=== PATIENT | male | born 1965 | race Caucasian/White ===

== ENCOUNTER 2021-06-17 18:05 | Inpatient (IN) | payer OTHER ==
[2021-06-17] MEDS ORDERED: LOPERAMIDE HCL 2 MG CAPSULE PO PRN (22:50)
[2021-06-17] MEDS ORDERED: MAGNESIUM HYDROX 2400MG/30ML ORAL SUSPENSION 30 ML CUP PO PRN (22:50)
[2021-06-17] MEDS ORDERED: ACETAMINOPHEN 325 MG TABLET (FP) PO PRN (22:50)
[2021-06-17] MEDS ORDERED: IBUPROFEN 400 MG TABLET (FP) PO PRN (22:50)
[2021-06-17] MEDS ORDERED: MAG HYDROX/AL HYDROX/SIMETH 30 ML UNIT-DOSE CUP PO PRN (22:50)
[2021-06-17] MEDS ORDERED: guaiFENesin 200 MG/10 ML 10 ML UNIT-DOSE CUPS PO PRN (22:50)
[2021-06-17] MEDS ORDERED: MAGNESIUM CITRATE 300 ML BOTTLE PO PRN (22:50)
[2021-06-17] MEDS ORDERED: P-EPHED 60MG/TRIPROLIDI 2.5MG TABLET PO PRN (22:50)
[2021-06-17 23:49] VITALS: BMI 28.5
[2021-06-18] MEDS ORDERED: TUBERCULIN PPD 5 TU/0.1ML VIAL ID ONE ×2 (04:11→08:03)
[2021-06-18] MEDS: hydrOXYzine PAMOATE 25 MG CAPSULE (FP) PO SCH ×5 (08:07→21:40)
[2021-06-18] MEDS ORDERED: APIXABAN 5 MG TABLET PO SCH (10:00)
[2021-06-18] MEDS: PRENATAL VITAMINS W/ FOLIC ACID TABLET (FP) PO SCH (10:38)
[2021-06-18] MEDS: NICOTINE 7 MG/24 HOURS TOPICAL PATCH TD SCH (10:39)
[2021-06-18] MEDS: MELATONIN 5 MG TABLETS PO SCH ×2 (16:29→21:40)
[2021-06-18] MEDS: metFORMIN HCL 500 MG TABLET (FP) PO SCH (17:00)
[2021-06-18] MEDS: FAMOTIDINE 20 MG TABLET PO SCH (17:00)
[2021-06-18] MEDS: NICOTINE 10 MG CARTRIDGE (INHALER) IH PRN (17:03)
[2021-06-18] MEDS: APIXABAN 5 MG TABLET PO SCH (21:40)
[2021-06-18] MEDS: THIAMINE HCL 100 MG TABLET (FP) PO SCH (21:40)
[2021-06-19] MEDS: metFORMIN HCL 500 MG TABLET (FP) PO SCH (06:43)
[2021-06-19] MEDS: hydrOXYzine PAMOATE 25 MG CAPSULE (FP) PO SCH ×5 (06:43→21:58)
[2021-06-19] MEDS ORDERED: PT OWN MED DRAWER 7, Y5N ONE (09:05)
[2021-06-19] MEDS: APIXABAN 5 MG TABLET PO SCH ×2 (10:36→21:57)
[2021-06-19] MEDS: PRENATAL VITAMINS W/ FOLIC ACID TABLET (FP) PO SCH (10:36)
[2021-06-19] MEDS: NICOTINE 7 MG/24 HOURS TOPICAL PATCH TD SCH (10:37)
[2021-06-19] MEDS: FAMOTIDINE 20 MG TABLET PO SCH (10:38)
[2021-06-19] MEDS: NICOTINE 10 MG CARTRIDGE (INHALER) IH PRN ×2 (10:38→19:23)
[2021-06-19] MEDS: MAGNESIUM OXIDE 400 MG TABLET (FP) PO SCH (10:59)
[2021-06-19] MEDS: MELATONIN 5 MG TABLETS PO SCH (21:58)
[2021-06-19] MEDS: THIAMINE HCL 100 MG TABLET (FP) PO SCH (21:58)
[2021-06-20] MEDS: metFORMIN HCL 500 MG TABLET (FP) PO SCH (06:22)
[2021-06-20] MEDS: hydrOXYzine PAMOATE 25 MG CAPSULE (FP) PO SCH ×2 (06:22→11:31)
[2021-06-20] MEDS: NICOTINE 10 MG CARTRIDGE (INHALER) IH PRN ×3 (06:22→21:29)
[2021-06-20] MEDS: APIXABAN 5 MG TABLET PO SCH ×2 (10:52→21:27)
[2021-06-20] MEDS: PRENATAL VITAMINS W/ FOLIC ACID TABLET (FP) PO SCH (10:52)
[2021-06-20] MEDS: FAMOTIDINE 20 MG TABLET PO SCH (10:52)
[2021-06-20] MEDS: NICOTINE 7 MG/24 HOURS TOPICAL PATCH TD SCH (10:53)
[2021-06-20] MEDS: MAGNESIUM OXIDE 400 MG TABLET (FP) PO SCH (13:52)
[2021-06-20] MEDS: POLYETHYLENE GLYCOL (HEALTHYLAX) 3350 17 GM PACKET PO SCH (14:29)
[2021-06-20 17:12] LABS: HEMATOCRIT 34.2 % (35.4-49); HEMOGLOBIN 11.2 GM/dL (11.7-16.9); MCH 31.6 pg (25.7-33.7); MCHC 32.7 g/dl (32.0-35.9); MEAN CELL VOLUME 96.7 fl (80-96); MEAN PLT VOLUME 7.4 fl (7.5-11.1); PLATELET COUNT 318 10^3/uL (134-434); RBC 3.53 M/mm3 (4.00-5.60); RDW 18.5 % (11.9-15.9); WHITE BLOOD COUNT 7.8 K/mm3 (4.0-10.0)
[2021-06-20 17:23] LABS: ALBUMIN 3.2 g/dl (3.4-5.0); BLOOD UREA NITROGEN 14.6 mg/dL (7-18); CALCIUM 8.2 mg/dL (8.5-10.1)
[2021-06-20 17:28] LABS: TOT PROT 6.9 g/dl (6.4-8.2)
[2021-06-20] MEDS ORDERED: PT OWN MED DRAWER 7, Y5N ONE (20:29)
[2021-06-20] MEDS: MELATONIN 5 MG TABLETS PO SCH (21:27)
[2021-06-20] MEDS: traZODone HCL 100 MG TABLET (FP) PO SCH (21:27)
[2021-06-20] MEDS: THIAMINE HCL 100 MG TABLET (FP) PO SCH (21:27)
[2021-06-21] MEDS: metFORMIN HCL 500 MG TABLET (FP) PO SCH (06:24)
[2021-06-21] MEDS: NICOTINE 10 MG CARTRIDGE (INHALER) IH PRN ×3 (06:25→21:25)
[2021-06-21] MEDS: PRENATAL VITAMINS W/ FOLIC ACID TABLET (FP) PO SCH (09:48)
[2021-06-21] MEDS: APIXABAN 5 MG TABLET PO SCH ×2 (09:48→21:24)
[2021-06-21] MEDS: POLYETHYLENE GLYCOL (HEALTHYLAX) 3350 17 GM PACKET PO SCH (09:48)
[2021-06-21] MEDS: NICOTINE 7 MG/24 HOURS TOPICAL PATCH TD SCH (09:48)
[2021-06-21] MEDS: MAGNESIUM OXIDE 400 MG TABLET (FP) PO SCH (09:48)
[2021-06-21] MEDS: FAMOTIDINE 20 MG TABLET PO SCH (09:48)
[2021-06-21 17:27] LABS: PH,URINE 6.5 (5.0-8.0); URINE APPEARANCE CLEAR; URINE BILIRUBIN NEGATIVE (NEGATIVE); URINE COLOR YELLOW; URINE GLUCOSE (UA) NEGATIVE (NEGATIVE); URINE KETONE NEGATIVE (NEGATIVE); URINE LEUK ESTERASE NEGATIVE (NEGATIVE); URINE NITRITE NEGATIVE (NEGATIVE); URINE PROTEIN NEGATIVE (NEGATIVE)
[2021-06-21] MEDS ORDERED: PT OWN MED DRAWER 7, Y5N ONE (19:18)
[2021-06-21] MEDS: traZODone HCL 100 MG TABLET (FP) PO SCH (21:24)
[2021-06-21] MEDS: THIAMINE HCL 100 MG TABLET (FP) PO SCH (21:24)
[2021-06-21] MEDS: MELATONIN 5 MG TABLETS PO SCH (21:24)
[2021-06-22] MEDS: metFORMIN HCL 500 MG TABLET (FP) PO SCH (06:20)
[2021-06-22] MEDS: PRENATAL VITAMINS W/ FOLIC ACID TABLET (FP) PO SCH (09:56)
[2021-06-22] MEDS: NICOTINE 7 MG/24 HOURS TOPICAL PATCH TD SCH (09:57)
[2021-06-22] MEDS: hydrOXYzine PAMOATE 25 MG CAPSULE (FP) PO PRN (09:57)
[2021-06-22] MEDS: POLYETHYLENE GLYCOL (HEALTHYLAX) 3350 17 GM PACKET PO SCH ×3 (09:57→16:12)
[2021-06-22] MEDS: MAGNESIUM OXIDE 400 MG TABLET (FP) PO SCH (09:57)
[2021-06-22] MEDS: APIXABAN 5 MG TABLET PO SCH ×2 (09:57→21:25)
[2021-06-22] MEDS: FAMOTIDINE 20 MG TABLET PO SCH (09:57)
[2021-06-22] MEDS: NICOTINE 10 MG CARTRIDGE (INHALER) IH PRN ×3 (09:58→21:26)
[2021-06-22] MEDS ORDERED: PT OWN MED DRAWER 7, Y5N ONE (20:19)
[2021-06-22] MEDS: traZODone HCL 100 MG TABLET (FP) PO SCH (21:25)
[2021-06-22] MEDS: MELATONIN 5 MG TABLETS PO SCH (21:26)
[2021-06-22] MEDS: THIAMINE HCL 100 MG TABLET (FP) PO SCH (21:26)
[2021-06-23] MEDS: NICOTINE 10 MG CARTRIDGE (INHALER) IH PRN ×5 (06:19→22:09)
[2021-06-23] MEDS: metFORMIN HCL 500 MG TABLET (FP) PO SCH (06:19)
[2021-06-23] MEDS: APIXABAN 5 MG TABLET PO SCH ×2 (10:05→21:33)
[2021-06-23] MEDS: hydrOXYzine PAMOATE 25 MG CAPSULE (FP) PO PRN (10:05)
[2021-06-23] MEDS: MAGNESIUM OXIDE 400 MG TABLET (FP) PO SCH (10:05)
[2021-06-23] MEDS: PRENATAL VITAMINS W/ FOLIC ACID TABLET (FP) PO SCH (10:05)
[2021-06-23] MEDS: POLYETHYLENE GLYCOL (HEALTHYLAX) 3350 17 GM PACKET PO SCH (10:06)
[2021-06-23] MEDS: FAMOTIDINE 20 MG TABLET PO SCH (10:06)
[2021-06-23] MEDS: NICOTINE 7 MG/24 HOURS TOPICAL PATCH TD SCH (10:06)
[2021-06-23] MEDS ORDERED: PT OWN MED DRAWER 7, Y5N ONE (20:16)
[2021-06-23] MEDS: traZODone HCL 100 MG TABLET (FP) PO SCH (21:33)
[2021-06-23] MEDS: MELATONIN 5 MG TABLETS PO SCH (21:33)
[2021-06-23] MEDS: THIAMINE HCL 100 MG TABLET (FP) PO SCH (21:33)
[2021-06-24] MEDS: NICOTINE 10 MG CARTRIDGE (INHALER) IH PRN ×5 (04:55→23:46)
[2021-06-24] MEDS: metFORMIN HCL 500 MG TABLET (FP) PO SCH (06:29)
[2021-06-24] MEDS ORDERED: PT OWN MED DRAWER 7, Y5N ONE ×2 (08:35→19:54)
[2021-06-24] MEDS: PRENATAL VITAMINS W/ FOLIC ACID TABLET (FP) PO SCH (10:20)
[2021-06-24] MEDS: APIXABAN 5 MG TABLET PO SCH ×2 (10:20→21:38)
[2021-06-24] MEDS: POLYETHYLENE GLYCOL (HEALTHYLAX) 3350 17 GM PACKET PO SCH (10:20)
[2021-06-24] MEDS: MAGNESIUM OXIDE 400 MG TABLET (FP) PO SCH (10:20)
[2021-06-24] MEDS: FAMOTIDINE 20 MG TABLET PO SCH (10:20)
[2021-06-24] MEDS: NICOTINE 7 MG/24 HOURS TOPICAL PATCH TD SCH (10:21)
[2021-06-24] MEDS: THIAMINE HCL 100 MG TABLET (FP) PO SCH (21:38)
[2021-06-24] MEDS: traZODone HCL 100 MG TABLET (FP) PO SCH (21:38)
[2021-06-24] MEDS: MELATONIN 5 MG TABLETS PO SCH (21:38)
[2021-06-25] MEDS: metFORMIN HCL 500 MG TABLET (FP) PO SCH (06:24)
[2021-06-25] MEDS: NICOTINE 10 MG CARTRIDGE (INHALER) IH PRN ×4 (06:25→19:56)
[2021-06-25] MEDS: PRENATAL VITAMINS W/ FOLIC ACID TABLET (FP) PO SCH (10:12)
[2021-06-25] MEDS: MAGNESIUM OXIDE 400 MG TABLET (FP) PO SCH (10:13)
[2021-06-25] MEDS: FAMOTIDINE 20 MG TABLET PO SCH (10:13)
[2021-06-25] MEDS: APIXABAN 5 MG TABLET PO SCH ×2 (10:13→21:33)
[2021-06-25] MEDS: POLYETHYLENE GLYCOL (HEALTHYLAX) 3350 17 GM PACKET PO SCH (10:14)
[2021-06-25] MEDS: NICOTINE 7 MG/24 HOURS TOPICAL PATCH TD SCH (10:14)
[2021-06-25] MEDS: traZODone HCL 100 MG TABLET (FP) PO SCH (21:32)
[2021-06-25] MEDS: THIAMINE HCL 100 MG TABLET (FP) PO SCH (21:32)
[2021-06-25] MEDS: MELATONIN 5 MG TABLETS PO SCH (21:32)
[2021-06-26] MEDS: metFORMIN HCL 500 MG TABLET (FP) PO SCH (06:08)
[2021-06-26] MEDS: hydrOXYzine PAMOATE 25 MG CAPSULE (FP) PO PRN (06:09)
[2021-06-26] MEDS: NICOTINE 10 MG CARTRIDGE (INHALER) IH PRN ×5 (06:10→22:23)
[2021-06-26] MEDS: MAGNESIUM OXIDE 400 MG TABLET (FP) PO SCH (09:51)
[2021-06-26] MEDS: FAMOTIDINE 20 MG TABLET PO SCH (09:51)
[2021-06-26] MEDS: APIXABAN 5 MG TABLET PO SCH ×2 (09:51→22:08)
[2021-06-26] MEDS: NICOTINE 7 MG/24 HOURS TOPICAL PATCH TD SCH (09:52)
[2021-06-26] MEDS: PRENATAL VITAMINS W/ FOLIC ACID TABLET (FP) PO SCH (09:52)
[2021-06-26] MEDS: POLYETHYLENE GLYCOL (HEALTHYLAX) 3350 17 GM PACKET PO SCH (09:53)
[2021-06-26] MEDS ORDERED: PT OWN MED DRAWER 7, Y5N ONE (19:35)
[2021-06-26] MEDS: traZODone HCL 100 MG TABLET (FP) PO SCH (22:08)
[2021-06-26] MEDS: MELATONIN 5 MG TABLETS PO SCH (22:08)
[2021-06-26] MEDS: THIAMINE HCL 100 MG TABLET (FP) PO SCH (22:08)
[2021-06-27] MEDS: metFORMIN HCL 500 MG TABLET (FP) PO SCH (06:34)
[2021-06-27] MEDS: NICOTINE 10 MG CARTRIDGE (INHALER) IH PRN ×5 (06:34→23:12)
[2021-06-27] MEDS: FAMOTIDINE 20 MG TABLET PO SCH (09:58)
[2021-06-27] MEDS: APIXABAN 5 MG TABLET PO SCH ×2 (09:58→21:23)
[2021-06-27] MEDS: hydrOXYzine PAMOATE 25 MG CAPSULE (FP) PO PRN ×2 (09:59→21:24)
[2021-06-27] MEDS: POLYETHYLENE GLYCOL (HEALTHYLAX) 3350 17 GM PACKET PO SCH (09:59)
[2021-06-27] MEDS: MAGNESIUM OXIDE 400 MG TABLET (FP) PO SCH (09:59)
[2021-06-27] MEDS: PRENATAL VITAMINS W/ FOLIC ACID TABLET (FP) PO SCH (09:59)
[2021-06-27] MEDS: NICOTINE 7 MG/24 HOURS TOPICAL PATCH TD SCH (09:59)
[2021-06-27] MEDS ORDERED: PT OWN MED DRAWER 7, Y5N ONE (20:37)
[2021-06-27] MEDS: THIAMINE HCL 100 MG TABLET (FP) PO SCH (21:23)
[2021-06-27] MEDS: MELATONIN 5 MG TABLETS PO SCH (21:23)
[2021-06-27] MEDS: traZODone HCL 100 MG TABLET (FP) PO SCH (21:23)
[2021-06-28] MEDS: metFORMIN HCL 500 MG TABLET (FP) PO SCH (06:13)
[2021-06-28] MEDS: hydrOXYzine PAMOATE 25 MG CAPSULE (FP) PO PRN ×2 (06:13→21:37)
[2021-06-28] MEDS ORDERED: PT OWN MED DRAWER 7, Y5N ONE (08:36)
[2021-06-28] MEDS: APIXABAN 5 MG TABLET PO SCH ×2 (10:12→21:37)
[2021-06-28] MEDS: NICOTINE 7 MG/24 HOURS TOPICAL PATCH TD SCH (10:12)
[2021-06-28] MEDS: FAMOTIDINE 20 MG TABLET PO SCH (10:12)
[2021-06-28] MEDS: MAGNESIUM OXIDE 400 MG TABLET (FP) PO SCH (10:12)
[2021-06-28] MEDS: PRENATAL VITAMINS W/ FOLIC ACID TABLET (FP) PO SCH (10:12)
[2021-06-28] MEDS: POLYETHYLENE GLYCOL (HEALTHYLAX) 3350 17 GM PACKET PO SCH (10:12)
[2021-06-28] MEDS: NICOTINE 10 MG CARTRIDGE (INHALER) IH PRN ×4 (10:13→22:03)
[2021-06-28] MEDS ORDERED: METHOCARBAMOL 500 MG TABLET PO PRN (16:21)
[2021-06-28] MEDS: traZODone HCL 100 MG TABLET (FP) PO SCH (21:36)
[2021-06-28] MEDS: MELATONIN 5 MG TABLETS PO SCH (21:37)
[2021-06-28] MEDS: THIAMINE HCL 100 MG TABLET (FP) PO SCH (21:37)
[2021-06-29] MEDS: metFORMIN HCL 500 MG TABLET (FP) PO SCH (07:03)
[2021-06-29] MEDS: NICOTINE 10 MG CARTRIDGE (INHALER) IH PRN ×4 (07:05→19:02)
[2021-06-29] MEDS: PRENATAL VITAMINS W/ FOLIC ACID TABLET (FP) PO SCH (10:13)
[2021-06-29] MEDS: hydrOXYzine PAMOATE 25 MG CAPSULE (FP) PO PRN ×2 (10:13→21:38)
[2021-06-29] MEDS: FAMOTIDINE 20 MG TABLET PO SCH (10:13)
[2021-06-29] MEDS: POLYETHYLENE GLYCOL (HEALTHYLAX) 3350 17 GM PACKET PO SCH (10:14)
[2021-06-29] MEDS: APIXABAN 5 MG TABLET PO SCH ×2 (10:14→21:38)
[2021-06-29] MEDS: MAGNESIUM OXIDE 400 MG TABLET (FP) PO SCH (10:14)
[2021-06-29] MEDS: NICOTINE 7 MG/24 HOURS TOPICAL PATCH TD SCH (10:16)
[2021-06-29] MEDS: traZODone HCL 100 MG TABLET (FP) PO SCH (21:38)
[2021-06-29] MEDS: THIAMINE HCL 100 MG TABLET (FP) PO SCH (21:38)
[2021-06-29] MEDS: MELATONIN 5 MG TABLETS PO SCH (21:38)
[2021-06-30] MEDS: metFORMIN HCL 500 MG TABLET (FP) PO SCH (06:05)
[2021-06-30] MEDS: NICOTINE 10 MG CARTRIDGE (INHALER) IH PRN ×5 (06:06→22:10)
[2021-06-30] MEDS: FAMOTIDINE 20 MG TABLET PO SCH (09:59)
[2021-06-30] MEDS: APIXABAN 5 MG TABLET PO SCH ×2 (10:00→22:17)
[2021-06-30] MEDS: POLYETHYLENE GLYCOL (HEALTHYLAX) 3350 17 GM PACKET PO SCH (10:00)
[2021-06-30] MEDS: MAGNESIUM OXIDE 400 MG TABLET (FP) PO SCH (10:00)
[2021-06-30] MEDS: hydrOXYzine PAMOATE 25 MG CAPSULE (FP) PO PRN ×2 (10:00→21:19)
[2021-06-30] MEDS: NICOTINE 7 MG/24 HOURS TOPICAL PATCH TD SCH (10:01)
[2021-06-30] MEDS: PRENATAL VITAMINS W/ FOLIC ACID TABLET (FP) PO SCH (10:01)
[2021-06-30] MEDS ORDERED: PT OWN MED DRAWER 7, Y5N ONE (20:34)
[2021-06-30] MEDS: MELATONIN 5 MG TABLETS PO SCH (21:19)
[2021-06-30] MEDS: THIAMINE HCL 100 MG TABLET (FP) PO SCH (21:19)
[2021-06-30] MEDS: traZODone HCL 100 MG TABLET (FP) PO SCH (21:20)
[2021-07-01] MEDS: hydrOXYzine PAMOATE 25 MG CAPSULE (FP) PO PRN ×3 (06:05→21:16)
[2021-07-01] MEDS: metFORMIN HCL 500 MG TABLET (FP) PO SCH (06:05)
[2021-07-01] MEDS ORDERED: PT OWN MED DRAWER 7, Y5N ONE (08:29)
[2021-07-01] MEDS: NICOTINE 7 MG/24 HOURS TOPICAL PATCH TD SCH (10:03)
[2021-07-01] MEDS: MAGNESIUM OXIDE 400 MG TABLET (FP) PO SCH (10:03)
[2021-07-01] MEDS: PRENATAL VITAMINS W/ FOLIC ACID TABLET (FP) PO SCH (10:03)
[2021-07-01] MEDS: FAMOTIDINE 20 MG TABLET PO SCH (10:03)
[2021-07-01] MEDS: POLYETHYLENE GLYCOL (HEALTHYLAX) 3350 17 GM PACKET PO SCH (10:04)
[2021-07-01] MEDS: APIXABAN 5 MG TABLET PO SCH ×2 (10:04→21:16)
[2021-07-01] MEDS: NICOTINE 10 MG CARTRIDGE (INHALER) IH PRN ×4 (10:06→23:24)
[2021-07-01] MEDS: traZODone HCL 100 MG TABLET (FP) PO SCH (21:15)
[2021-07-01] MEDS: MELATONIN 5 MG TABLETS PO SCH (21:15)
[2021-07-01] MEDS: THIAMINE HCL 100 MG TABLET (FP) PO SCH (21:16)
[2021-07-02] MEDS: metFORMIN HCL 500 MG TABLET (FP) PO SCH (06:12)
[2021-07-02] MEDS: NICOTINE 10 MG CARTRIDGE (INHALER) IH PRN ×5 (06:13→22:25)
[2021-07-02] MEDS: FAMOTIDINE 20 MG TABLET PO SCH (09:59)
[2021-07-02] MEDS: APIXABAN 5 MG TABLET PO SCH ×2 (09:59→21:33)
[2021-07-02] MEDS: MAGNESIUM OXIDE 400 MG TABLET (FP) PO SCH (09:59)
[2021-07-02] MEDS: hydrOXYzine PAMOATE 25 MG CAPSULE (FP) PO PRN ×2 (09:59→21:34)
[2021-07-02] MEDS: PRENATAL VITAMINS W/ FOLIC ACID TABLET (FP) PO SCH (09:59)
[2021-07-02] MEDS: POLYETHYLENE GLYCOL (HEALTHYLAX) 3350 17 GM PACKET PO SCH (09:59)
[2021-07-02] MEDS: NICOTINE 7 MG/24 HOURS TOPICAL PATCH TD SCH (09:59)
[2021-07-02] MEDS: traZODone HCL 100 MG TABLET (FP) PO SCH (21:33)
[2021-07-02] MEDS: THIAMINE HCL 100 MG TABLET (FP) PO SCH (21:33)
[2021-07-02] MEDS: MELATONIN 5 MG TABLETS PO SCH (21:33)
[2021-07-03] MEDS: metFORMIN HCL 500 MG TABLET (FP) PO SCH (06:08)
[2021-07-03] MEDS: hydrOXYzine PAMOATE 25 MG CAPSULE (FP) PO PRN ×2 (06:09→21:39)
[2021-07-03] MEDS: NICOTINE 10 MG CARTRIDGE (INHALER) IH PRN ×5 (06:11→22:42)
[2021-07-03] MEDS ORDERED: PT OWN MED DRAWER 7, Y5N ONE ×3 (08:56→19:42)
[2021-07-03] MEDS: FAMOTIDINE 20 MG TABLET PO SCH (09:46)
[2021-07-03] MEDS: APIXABAN 5 MG TABLET PO SCH ×2 (09:46→21:39)
[2021-07-03] MEDS: MAGNESIUM OXIDE 400 MG TABLET (FP) PO SCH (09:46)
[2021-07-03] MEDS: NICOTINE 7 MG/24 HOURS TOPICAL PATCH TD SCH (09:47)
[2021-07-03] MEDS: PRENATAL VITAMINS W/ FOLIC ACID TABLET (FP) PO SCH (09:47)
[2021-07-03] MEDS: POLYETHYLENE GLYCOL (HEALTHYLAX) 3350 17 GM PACKET PO SCH (09:48)
[2021-07-03] MEDS: MELATONIN 5 MG TABLETS PO SCH (21:39)
[2021-07-03] MEDS: traZODone HCL 100 MG TABLET (FP) PO SCH (21:39)
[2021-07-03] MEDS: THIAMINE HCL 100 MG TABLET (FP) PO SCH (21:39)
[2021-07-04] MEDS: metFORMIN HCL 500 MG TABLET (FP) PO SCH (06:07)
[2021-07-04] MEDS: hydrOXYzine PAMOATE 25 MG CAPSULE (FP) PO PRN ×3 (06:07→21:36)
[2021-07-04] MEDS: NICOTINE 10 MG CARTRIDGE (INHALER) IH PRN ×5 (06:08→23:33)
[2021-07-04] MEDS: FAMOTIDINE 20 MG TABLET PO SCH (10:14)
[2021-07-04] MEDS: PRENATAL VITAMINS W/ FOLIC ACID TABLET (FP) PO SCH (10:14)
[2021-07-04] MEDS: MAGNESIUM OXIDE 400 MG TABLET (FP) PO SCH (10:15)
[2021-07-04] MEDS: APIXABAN 5 MG TABLET PO SCH ×2 (10:15→21:36)
[2021-07-04] MEDS: POLYETHYLENE GLYCOL (HEALTHYLAX) 3350 17 GM PACKET PO SCH (10:16)
[2021-07-04] MEDS: NICOTINE 7 MG/24 HOURS TOPICAL PATCH TD SCH (10:16)
[2021-07-04] MEDS: MELATONIN 5 MG TABLETS PO SCH (21:35)
[2021-07-04] MEDS: THIAMINE HCL 100 MG TABLET (FP) PO SCH (21:35)
[2021-07-04] MEDS: traZODone HCL 100 MG TABLET (FP) PO SCH (21:36)
[2021-07-05] MEDS: NICOTINE 10 MG CARTRIDGE (INHALER) IH PRN ×2 (04:49→09:15)
[2021-07-05] MEDS: hydrOXYzine PAMOATE 25 MG CAPSULE (FP) PO PRN (05:44)
[2021-07-05] MEDS: metFORMIN HCL 500 MG TABLET (FP) PO SCH (06:11)
[2021-07-05 07:25] VITALS: BP 146/93; PULSE 74; TEMP 97.1
[2021-07-05] MEDS: MAGNESIUM OXIDE 400 MG TABLET (FP) PO SCH (09:15)
[2021-07-05] MEDS: NICOTINE 7 MG/24 HOURS TOPICAL PATCH TD SCH (09:15)
[2021-07-05] MEDS: APIXABAN 5 MG TABLET PO SCH (09:15)
[2021-07-05] MEDS: PRENATAL VITAMINS W/ FOLIC ACID TABLET (FP) PO SCH (09:15)
[2021-07-05] MEDS: FAMOTIDINE 20 MG TABLET PO SCH (09:15)
[2021-07-05] MEDS: POLYETHYLENE GLYCOL (HEALTHYLAX) 3350 17 GM PACKET PO SCH (09:16)
== END 2021-07-05 10:30 | disposition home or self-care (01) | DRG 772 ==
LOC: YASAS 18:05 → Y5N 23:09
PROVIDERS: ADMIT Allergy & Immunology; ATTEND Allergy & Immunology
PROC: HZ42ZZZ Group Counseling for Substance Abuse Treatment, Cognitive-Behavioral (ICD-10-PCS; principal; 2021-06-17)
DX: F10.20 Alcohol dependence, uncomplicated (principal); F17.210 Nicotine dependence, cigarettes, uncomplicated; F10.24 Alcohol dependence with alcohol-induced mood disorder; F43.22 Adjustment disorder with anxiety; E11.9 Type 2 diabetes mellitus without complications; K21.9 Gastro-esophageal reflux disease without esophagitis; K59.00 Constipation, unspecified; M54.5 Low back pain; Z79.84 Long term (current) use of oral hypoglycemic drugs; Z86.718 Personal history of other venous thrombosis and embolism; Z79.01 Long term (current) use of anticoagulants; Z98.84 Bariatric surgery status; Z56.0 Unemployment, unspecified; Z59.0 Homelessness
CPT/HCPCS: 36415; 80053; 81003; 82962; 85027; 86780; C9803; U0003; U0005

== ENCOUNTER 2025-06-30 12:59 | Inpatient (IN) | payer OTHER ==
[2025-06-30 14:41] VITALS: BMI 33.7
[2025-06-30] MEDS ORDERED: BISMUTH SUBSALICYLATE 524 MG/30 ML PO PRN (15:02)
[2025-06-30] MEDS ORDERED: BENZONATATE 200 MG CAPSULE PO PRN (15:02)
[2025-06-30] MEDS ORDERED: LOPERAMIDE HCL 2 MG CAPSULE PO PRN (15:02)
[2025-06-30] MEDS ORDERED: ACETAMINOPHEN 325 MG TABLET (FP) PO PRN (15:02)
[2025-06-30] MEDS ORDERED: IBUPROFEN 600 MG TABLET (FP) PO PRN (15:02)
[2025-06-30] MEDS ORDERED: NALOXONE (NARCAN) HCL 4 MG/0.1 ML SPRAY NS PRN (15:02)
[2025-06-30] MEDS ORDERED: MAG HYDROX/AL HYDROX/SIMETH 30 ML UNIT-DOSE CUP PO PRN (15:02)
[2025-06-30] MEDS ORDERED: guaiFENesin 600 MG TABLET.ER (FP) PO PRN (15:02)
[2025-06-30] MEDS ORDERED: MAGNESIUM HYDROX 2400MG/30ML ORAL SUSPENSION 30 ML CUP PO PRN (15:02)
[2025-06-30] MEDS ORDERED: IBUPROFEN 400 MG TABLET (FP) PO PRN (15:02)
[2025-06-30] MEDS ORDERED: POLYETHYLENE GLYCOL (HEALTHYLAX) 3350 17 GM PACKET PO PRN (15:02)
[2025-06-30] MEDS ORDERED: DICYCLOMINE HCL 10 MG CAPSULE PO PRN (15:02)
[2025-06-30] MEDS ORDERED: ONDANSETRON *ODT* 4 MG TABLET SL PRN (15:02)
[2025-06-30] MEDS ORDERED: BENZOCAINE/MENTHOL (CHLORASEPTIC ) LOZENGE MM PRN (15:02)
[2025-06-30] MEDS: hydrOXYzine PAMOATE 25 MG CAPSULE (FP) PO PRN (17:21)
[2025-06-30] MEDS: METHOCARBAMOL 500 MG TABLET PO PRN (17:22)
[2025-06-30] MEDS: APIXABAN 5 MG TABLET PO SCH (22:23)
[2025-06-30] MEDS: MELATONIN 5 MG TABLETS PO SCH (22:23)
[2025-06-30] MEDS: THIAMINE 100 MG TABLET PO SCH (22:23)
[2025-06-30] MEDS: levETIRAcetam 500 MG TABLET (FP) PO SCH (22:23)
[2025-07-01] MEDS: PRENATAL VITAMINS W/ FOLIC ACID TABLET (FP) PO SCH (09:33)
[2025-07-01] MEDS: FOLIC ACID 1 MG TABLET (FP) PO SCH (09:33)
[2025-07-01] MEDS: FAMOTIDINE 20 MG TABLET PO SCH (11:46)
[2025-07-01 12:32] LABS: IMMATURE PLATELET FRACTION # 7.30 x10^3/uL; MCHC 33.5 g/dl (32.3-36.5); MEAN CELL VOLUME 90.9 fl (79.0-92.2); RDW 15.0 % (12.2-16.4)
[2025-07-01 12:57] LABS: GLUCOSE,RANDOM 75 mg/dL (74-106)
[2025-07-01 12:58] LABS: TOT PROT 5.7 g/dl (6.4-8.2)
[2025-07-01 12:59] LABS: CO2 22 mmol/L (21-32)
[2025-07-01 13:00] LABS: ALK PHOS 182 U/L (40-150)
[2025-07-01 13:03] LABS: CREATININE 0.89 mg/dL (0.55-1.3); SGOT/AST 26 U/L (5-34); SGPT/ALT < 6 U/L (0-55)
[2025-07-01] MEDS: POTASSIUM CHLORIDE ORAL LIQUID 20 MEQ/15 ML PO ONE (21:51)
[2025-07-02] MEDS ORDERED: MIRTAZAPINE 15 MG TABLET (FP) PO SCH (22:00)
[2025-07-03] MEDS ORDERED: NALTREXONE HCL 50 MG TABLET PO SCH (10:00)
[2025-07-03] MEDS: NALTREXONE HCL 50 MG TABLET PO SCH (13:35)
[2025-07-03] MEDS: POTASSIUM CHLORIDE ORAL LIQUID 20 MEQ/15 ML PO ONE (13:35)
[2025-07-03 21:25] VITALS: BP 147/79; PULSE 77; RESP 17; TEMP 97.5
== END 2025-07-04 12:06 | disposition short-term general hospital (02) | DRG 775 ==
LOC: YASAS 12:59 → Y6N 16:10
PROVIDERS: ADMIT Neuromusculoskeletal Medicine & OMM; ATTEND Allergy & Immunology
PROC: HZ2ZZZZ Detoxification Services for Substance Abuse Treatment (ICD-10-PCS; principal; 2025-06-30)
DX: F10.230 Alcohol dependence with withdrawal, uncomplicated (principal); F17.210 Nicotine dependence, cigarettes, uncomplicated; E87.6 Hypokalemia; E11.9 Type 2 diabetes mellitus without complications; Z79.84 Long term (current) use of oral hypoglycemic drugs; R40.0 Somnolence; R06.09 Other forms of dyspnea; R26.89 Other abnormalities of gait and mobility; Z99.89 Dependence on other enabling machines and devices; Z86.718 Personal history of other venous thrombosis and embolism; Z79.01 Long term (current) use of anticoagulants
CPT/HCPCS: 36415; 71045-TC-FY; 80053; 80307; 82962; 84132; 85027; 86780

== ENCOUNTER 2025-07-03 23:58 | Emergency (ER) | payer OTHER ==
[2025-07-04] MEDS ORDERED: ACETAMINOPHEN INJECTION 100 ML ONE (00:26)
[2025-07-04] MEDS ORDERED: CEFTRIAXONE 2 GM-D5W BAG 2 GM/50 ML BAG IVPB ONE (00:26)
[2025-07-04 00:32] VITALS: TEMP 98.5; BMI 33.6
[2025-07-04 01:44] LABS: ABSOLUTE IMMATURE GRANULOCYTES 0.04 x10^3/uL (0.0-0.031); BASOPHILS # 0.07 x10^3/uL (0.01-0.08); EOSINOPHIL % 0.9 % (0.8-7.0); EOSINOPHILS # 0.07 x10^3/uL (0.04-0.54); MCHC 32.7 g/dl (32.3-36.5); MEAN CELL VOLUME 93.1 fl (79.0-92.2); MEAN PLT VOLUME 9.8 fl (9.4-12.4); MONOCYTE # 0.62 x10^3/uL (0.30-0.82); MONOCYTE % 7.6 % (5.3-12.2); RDW 16.4 % (12.2-16.4)
[2025-07-04 01:46] LABS: GLUCOSE,RANDOM 119 mg/dL (74-106); TOT PROT 7.4 g/dl (6.4-8.2)
[2025-07-04 01:47] LABS: CO2 19 mmol/L (21-32)
[2025-07-04 01:48] LABS: BG HCT 42.0 % (35.4-49); VENOUS BASE EXCESS 3.1 mmol/L (-2-2); VENOUS O2 SATURATION 55.6 % (70-80); VENOUS PCO2 38.5 mmHg (38-52); VENOUS PH 7.462 (7.310-7.410)
[2025-07-04 01:49] LABS: ALK PHOS 192 U/L (40-150)
[2025-07-04 01:52] LABS: CREATININE 0.78 mg/dL (0.55-1.3); SGOT/AST 26 U/L (5-34); SGPT/ALT 10 U/L (0-55)
[2025-07-04] MEDS: SODIUM CHLORIDE 500 ML IV STA (03:05)
[2025-07-04 04:00] LABS: INR 1.06 (0.83-1.09); PROTHROMBIN TIME (PATIENT) 11.7 SEC (9.7-13.0)
[2025-07-04 04:02] LABS: ACTIVATED PTT 29.6 SECONDS (25.2-36.5)
[2025-07-04] MEDS ORDERED: LIDOCAINE 1%/EPI 1:100000 (20 ML MULTI DOSE VIAL) ONE (04:14)
[2025-07-04] MEDS ORDERED: MORPHINE SULFATE 2 MG/ML SYRINGE ONE (04:29)
[2025-07-04] MEDS: LIDOCAINE 5% TOPICAL PATCH TP ONE (05:16)
[2025-07-04] MEDS: LIDOCAINE HCL 1%, 10 MG/ML (50 mL VIAL) SQ ONE (05:16)
[2025-07-04 06:03] VITALS: BP 140/66; PULSE 65; RESP 18
[2025-07-04] MEDS ORDERED: LIDOCAINE PATCH REMOVAL MC SCH (22:00)
== END 2025-07-04 05:00 | disposition short-term general hospital (02) ==
LOC: JER 23:58
PROC: 0B9P3ZZ Drainage of Left Pleura, Percutaneous Approach (ICD-10-PCS; principal; 2025-07-03)
PROC: 3E033NZ Introduction of Analgesics, Hypnotics, Sedatives into Peripheral Vein, Percutaneous Approach (ICD-10-PCS; 2025-07-04)
PROC: 3E0337Z Introduction of Electrolytic and Water Balance Substance into Peripheral Vein, Percutaneous Approach (ICD-10-PCS; 2025-07-04)
DX: S22.42XA Multiple fractures of ribs, left side, initial encounter for closed fracture (principal); S00.83XA Contusion of other part of head, initial encounter; J93.9 Pneumothorax, unspecified; J94.2 Hemothorax; R41.82 Altered mental status, unspecified; R50.9 Fever, unspecified; W18.30XA Fall on same level, unspecified, initial encounter
CPT/HCPCS: 36415; 70450-TC; 70486-TC; 71045-TC-FY; 71250-TC; 72125-TC; 80053; 80307; 82550; 82803; 82962; 83605; 83735; 85025; 85610; 85730; 87040; 87637-QW; 93005; 93010; 99285-25